=== PATIENT | female | born 1950 ===

== ENCOUNTER 2017-10-23 07:04 | Outpatient (CLI) | payer OTHER | END 2017-10-23 07:11 | disposition home or self-care (01) | LOC: NUCLEAR 07:04 | DX: K81.9 Cholecystitis, unspecified (principal) | CPT/HCPCS: 78227; A9537; J2805 ==

== ENCOUNTER 2021-05-15 08:21 | Outpatient (CLI) | payer OTHER | END 2021-05-15 08:26 | disposition home or self-care (01) | LOC: RX STUDY 08:21 | DX: R13.12 Dysphagia, oropharyngeal phase (principal) ==

== ENCOUNTER 2022-02-19 11:20 | Outpatient (CLI) | payer OTHER | END 2022-02-19 11:23 | disposition home or self-care (01) | LOC: SONOGRAMA 11:20 | PROVIDERS: ATTEND Pathology Anatomic Pathology & Clinical Pathology | DX: E04.1 Nontoxic single thyroid nodule (principal) ==

== ENCOUNTER 2024-10-15 08:11 | Outpatient (CLI) | payer OTHER | END 2024-10-15 08:16 | disposition home or self-care (01) | LOC: SONOGRAMA 08:11 | PROVIDERS: ATTEND Pathology Anatomic Pathology & Clinical Pathology | DX: E04.1 Nontoxic single thyroid nodule (principal); E06.3 Autoimmune thyroiditis; D34 Benign neoplasm of thyroid gland ==